=== PATIENT | female | born 1960 | race Caucasian/White ===

== ENCOUNTER 2017-01-15 12:09 | Inpatient (IN) | payer OTHER ==
[~2017-01-15] VITALS: Ht 157.5 cm; Wt 68.2 kg
[2017-01-15] VITALS (15 sets, daily range): BP systolic 130–147; BP diastolic 68–95; PULSE 60–81; RESP 12–23; Ht 157.5 cm; Wt 68.2 kg
[~2017-01-15 12:09] MED LIST: ASPIRIN 81 MG TAB ONE; CAPT25TA3; IBUP200C; LIDOCAINE 2 GM/D5W 500 ML BAG ONE; NITROGLYCERIN (SL) 0.4 MG TAB ONE
[2017-01-15] MEDS ORDERED: ASPIRIN 325 MG TAB PO STA (12:18)
[2017-01-15] MEDS ORDERED: NITROGLYCERIN (SL) 0.4 MG TAB SL PRN (12:30)
[2017-01-15 12:31] LABS: BASOPHIL # 0.1 10^3/ul (0.0-0.1); BASOPHILS % 0.5 % (0.0-2.0); EOSINOPHILS # 0.1 10^3/ul (0.0-0.5); EOSINOPHILS % 0.8 % (0.0-7.0); HEMATOCRIT 46.4 % (37.0-47.0); HEMOGLOBIN 15.3 g/dl (12.0-16.0); LYMPHOCYTES # 2.6 10^3/ul (0.8-2.9); LYMPHOCYTES % 21.5 % (15.0-51.0); MEAN CORPUSCULAR HEMOGLOBIN 30.5 pg (29.0-33.0); MEAN CORPUSCULAR VOLUME 92.6 fl (82.0-101.0); MONOCYTE # 0.5 10^3/ul (0.3-0.9); MONOCYTES % 4.5 % (0.0-11.0); NEUTROPHIL # 8.6 10^3/ul (1.6-7.5); PLATELET COUNT 228 10^3/UL (140-415); RED BLOOD COUNT 5.01 10^6/ul (4.20-5.40); RED CELL DISTRIBUTION WIDTH 14.7 % (11.5-14.5); WHITE BLOOD COUNT 11.9 10^3/ul (4.8-10.8)
[2017-01-15] MEDS ORDERED: HEPARIN 1000 UNITS/ML 10 ML INJ ONE (12:37)
[2017-01-15] MEDS ORDERED: VERAPAMIL 5 MG INJ ONE (12:37)
[2017-01-15] MEDS ORDERED: IOHEXOL 350MG/ML 50 ML BTL ONE (12:37)
[2017-01-15] MEDS ORDERED: MIDAZOLAM 1 MG/ML 2 ML INJ ONE (12:37)
[2017-01-15] MEDS ORDERED: IODIXANOL LOCM 100 ML BTL ONE (12:37)
[2017-01-15] MEDS ORDERED: FENTAnyl 50 MCG/ML VIAL ONE (12:37)
[2017-01-15] MEDS ORDERED: NITROGLYCERIN (IC) 100 MCG/ML INJ ONE (12:38)
--- NOTE | 2017-01-15 12:38 | RADRPT ---
PROCEDURE: XR Chest. CLINICAL INDICATION: Chest pain TECHNIQUE: Single portable view of the chest was obtained COMPARISON: None FINDINGS: The heart is enlarged. The lungs are clear. There is no pleural effusion or pneumothorax. RPTAT: AA IMPRESSION: Mild Cardiomegaly. .Fredrick Cote MD, Date Time Electronically viewed and signed by .Fredrick Cote MD, on 01/15/2017 12:38 .S/
[2017-01-15] MEDS ORDERED: BIVALIRUDIN 250MG /NS 50 ML 50 ML IVPB ONE (12:39)
[2017-01-15] MEDS ORDERED: LIDOCAINE 1% (MDV) 20 ML INJ ONE (12:39)
[2017-01-15 12:57] LABS: CALCIUM 9.6 mg/dl (8.4-10.2); CREATININE 0.75 mg/dl (0.44-1.00); POTASSIUM 4.9 mmol/L (3.5-5.1)
[2017-01-15 13:15] LABS: TROPONIN-I 0.048 ng/ml (0.00-0.12)
[2017-01-15] MEDS ORDERED: AMIODARONE 150 MG INJ ONE ×2 (13:19→13:46)
--- NOTE | 2017-01-15 13:24 | ERA ---
ER Documentation Chief Complaint Date/Time DATE: 01/15/17 TIME: 13:21 Chief Complaint chest pain/pressure, onset yesterday, pt seen by paramedics at home HPI Patient is a 56-year-old female with hypertension who presents with chest pain. The patient has midsternal chest pain which started yesterday. She describes it as a pressure and it has been constant. She had initially called 911 and paramedics saw her and did EKG which was normal and then the patient refused transport to the ER. She has had no treatment as of yet. She does not know the name of her primary doctor. ROS All systems reviewed and are negative except as per history of present illness. Medications Home Meds Reported Medications Captopril* (Captopril*) 25 Mg Tablet 07/31/10 Ibuprofen* (Ibuprofen*) 200 Mg Capsule 07/31/10 Allergies Allergies: Coded Allergies: No Known Allergies (Verified Allergy, Mild, 07/31/10) PMhx/Soc History of Surgery: Yes (Cholecystectomy, ) Anesthesia Reaction: No Hx Neurological Disorder: No Hx Respiratory Disorders: No Hx Cardiac Disorders: Yes (HTN) Hx Psychiatric Problems: No Hx Miscellaneous Medical Probl: No Hx Alcohol Use: No Hx Substance Use: No Hx Tobacco Use: No Smoking Status: Never smoker FmHx Family History: No coronary disease Physical Exam Vitals Vital Signs Date Time Temp Pulse Resp B/P Pulse Ox O2 Delivery O2 Flow Rate FiO2 01/15/17 12:11 97.2 64 18 192/92 100 Physical Exam Const: Moderate distress Head: Atraumatic Eyes: Normal Conjunctiva ENT: Normal External Ears, Nose and Mouth. Neck: Full range of motion..~ No meningismus. Resp: Clear to auscultation bilaterally Cardio: Regular rate and rhythm, no murmurs Abd: Soft, non tender, non distended. Normal bowel sounds Skin: No petechiae or rashes Back: No midline or flank tenderness Ext: No cyanosis, or edema Neur: Awake and alert Psych: Normal Mood and Affect Result Diagram: 01/15/17 1225 01/15/17 1225 Results 24 hrs Laboratory Tests Test 01/15/17 12:25 White Blood Count 11.910^3/ul Red Blood Count 5.0110^6/ul Hemoglobin 15.3g/dl Hematocrit 46.4% Mean Corpuscular Volume 92.6fl Mean Corpuscular Hemoglobin 30.5pg Mean Corpuscular Hemoglobin Concent 33.0g/dl Red Cell Distribution Width 14.7% Platelet Count 49870^3/UL Mean Platelet Volume 10.0fl Neutrophils % 72.0% Lymphocytes % 21.5% Monocytes % 4.5% Eosinophils % 0.8% Basophils % 0.5% Nucleated Red Blood Cells % 0.0/100WBC Neutrophils # 8.610^3/ul Lymphocytes # 2.610^3/ul Monocytes # 0.510^3/ul Eosinophils # 0.110^3/ul Basophils # 0.110^3/ul Nucleated Red Blood Cells # 0.010^3/ul Sodium Level 143mmol/L Potassium Level 4.9mmol/L Chloride Level 103mmol/L Carbon Dioxide Level 24mmol/L Anion Gap 21 Blood Urea Nitrogen 16mg/dl Creatinine 0.75mg/dl Glucose Level 122mg/dl Calcium Level 9.6mg/dl Troponin I 0.048ng/ml Current Medications Medications (Trade) Dose Ordered Sig/Melchor Route PRN Reason Start Time Stop Time Status Last Admin Dose Admin Aspirin (Aspirin) 325 mg ONCE STAT PO 01/15/17 12:18 01/15/17 12:19 DC 01/15/17 12:55 Nitroglycerin (Nitroglycerin (Sl Tab) 0.4 Mg) 1 tab Q5M UP TO 3 DOSES PRN SL CHEST PAIN 01/15/17 12:30 01/15/17 12:43 Procedures/MDM EKG read by me: Rate/Rhythm: Regular rate and rhythm at a normal rate Intervals: Normal Impression: ST elevations in the inferior and lateral leads with reciprocal depressions consistent with STEMI Chest x-ray shows mild cardiomegaly per radiology. Patient is a 56-year-old female who presents with chest pressure. EKG shows acute STEMI. I did review the real estate management specialist EKG that was done at her house which did not show STEMI at that time. The patient was a walk-in. She had an EKG done at 1213. She checked in at 1209. She had a code STEMI called at 1216. Dr. Maloney was at the bedside by 1220. She left the ER at 1231. She was given aspirin and sublingual nitroglycerin per Dr. Maloney. The patient was transferred directly to the cardiac Machine Shop Worker for a catheterization. I spoke with Dr. Proctor from the panel team for admission to an ICU bed. I doubt pneumonia, pneumothorax, pulmonary embolism, or aortic dissection. The patient has high blood pressure and was given sublingual nitroglycerin which will lower the blood pressure. Critical Care: Time: 35 minutes excluding all billable procedures. Treatments/Evaluations: Close monitoring and treatment of unstable vital signs, cardiorespiratory, and neurologic status, while maintaining tight balance of fluid, respiratory, and cardiac interventions. Departure Diagnosis: Primary Impression: STEMI (ST elevation myocardial infarction) Qualified Code: I21.3 - ST elevation myocardial infarction (STEMI), unspecified artery Additional Impressions: Chest pain Qualified Code: I20.0 - Unstable angina pectoris Hypertension Qualified Code: I10 - Essential hypertension Condition: Critical LIBRA PARKER MD Jan 15, 2017 13:24
[2017-01-15] MEDS ORDERED: CLOPIDOGREL 300 MG TAB ONE (13:27)
[2017-01-15] MEDS ORDERED: SOD CHLORIDE 0.9% 1,000 ML IV SCH (13:42)
--- NOTE | 2017-01-15 13:54 | OPR ---
Date/Time of Note Date/Time of Note DATE: 01/15/17 TIME: 13:44 Operative Report Procedure Date: Jan 15, [address] elevation myocardial infarction Postoperative Diagnosis Obstructive coronary artery disease Operation/Procedure Performed Left heart catheterization Right and left coronary angiogram Interpretation and supervision of right left coronary angiogram Left ventricular pressure measurements PCI of distal circumflex with 2.5 x 15 mm Medtronic [place] drug-eluting stent Conscious sedation ACLS protocol Right radial artery approach Surgeon see signature line Gear Technician None Anesthesia Type: other (Conscious sedation) Estimated Blood Loss: minimal Transfusion none Specimen None Grafts/Implants 2.5 x 15 mm Medtronic [place] drug-eluting sten Complications none Pt Condition Post Procedure: guarded Procedure Description Findings Hemodynamics LV pressure 119/6 with EDP of 25 Aortic pressure 115/74 Fluoroscopy Left main medium to large caliber vessel with no significant disease LAD is a medium caliber vessel with a mid 20% stenosis and distal 10% stenosis Circumflex is a medium caliber vessel with a mid 10% stenosis, in the distal vessel there is an obtuse marginal takeoff with an ostial 50% stenosis, mid distal circumflex after the obtuse marginal takeoff there is 100% occlusion RCA is a medium caliber vessel and dominant with a mid 30% stenosis and distal 20% diffuse stenosis Description of procedure Patient was brought to the Watch Supervisor after informed consent. Patient was prepped and draped as per protocol. Right radial access was obtained and a 5/6 Panamanian sheath was placed in the right radial artery. 5 Panamanian JL 3.0 diagnostic catheter was used to engage the left main and angiogram was performed. We next used a 6 [place]ian JR4 guide catheter to engage the RCA and angiogram was performed. On review of images, patient with 100% occlusion and distal circumflex. Angiomax was used for anticoagulation. Initially a VL 3.5 [place]ian guide catheter was used but would not sit well in the left main. We next switched for a 6 [place] VL 3.0 guide catheter and engaged the left main. A run-through wire was used to cross the lesion in the distal circumflex. With cross the lesion, there was significant improvement in flow in the vessel. The lesion was predilated with a 2.0 compliant balloon. After this balloon inflation, patient with ventricular tachycardia. Multiple doses of IV lidocaine were given. IV lidocaine drip was started. Patient returned to sinus rhythm. The lesion was then stented with a 2.5 x 15 mm Medtronic [place] drug-eluting stent. The stent delivery system balloon was used for postdilatation. There was an excellent angiographic result with FRANCA-3 flow with no evidence of dissection. Patient was chest pain-free by the end of the procedure, clinically stable and in sinus rhythm. We next used a 5 [place]ian pigtail into the left ventricle and pressure measures were obtained as well as pullback. Recommendations Dual antiplatelet therapy for minimum of 1 year to maintain stent patency, titrate off IV lidocaine if no further arrhythmias. Roberth Almendarez DO Jan 15, 2017 13:54
[2017-01-15] MEDS ORDERED: AL HYDROX/MG HYDROX/SIMETH 30 ML CUP PO PRN (14:00)
[2017-01-15] MEDS ORDERED: ACETAMINOPHEN 325 MG TAB PO PRN (14:00)
[2017-01-15] MEDS ORDERED: ONDANSETRON 4 MG INJ IV PRN (14:00)
--- NOTE | 2017-01-15 14:03 | CONS ---
Date/Time of Note Date/Time of Note DATE: 01/15/17 TIME: 13:58 Assessment/Plan Assessment/Plan Additional Assessment/Plan ST elevation VA CAD status post PCI to circumflex with drug-eluting stenting Hypertension Ventricular tachycardia -Patient with ST elevation VA with 100% occlusion in the circumflex status post drug-eluting stenting. Continue aspirin and Plavix therapy for minimum of 1 year to maintain stent patency, statin therapy. Patient with ventricular tachycardia during PCI, likely from reperfusion. Responded to IV lidocaine, would titrate down IV lidocaine as long as no further arrhythmias. Check echocardiogram. managed services sales consultant involvement since patient without health insurance and will need assistance with medications. Consultation Date/Type/Reason Admit Date/Time Type of Consultation: cv Reason for Consultation Chest pain and myocardial infarction Hx of Present Illness This is a 56-year-old female with past medical history of hypertension has been having on and off chest pain since yesterday. Chest pain got worse today and EMS was called. Patient was to be brought to the emergency room via ambulance but refused and came on her own. In the waiting room, patient with severe chest pain and ECG demonstrated ST elevation VA and for this reason I was consulted. Chest and was 10 out of 10 in nature upon my initial evaluation. She does complain of shortness of breath, denies abdominal pain, is feeling warm and sweaty. 12 point review of system was performed with all pertinent positives and negatives mentioned above and all else is negative Past Medical History Medical History: hypertension Past Surgical History Past Surgical Hx: cholecystectomy Family History Significant Family History: no pertinent family hx Social History Alcohol Use: none Smoking Status: Never smoker Other Social History Lives at home Exam/Review of Systems Vital Signs Vitals Vital Signs Date Time Temp Pulse Resp B/P Pulse Ox O2 Delivery O2 Flow Rate FiO2 01/15/17 12:11 97.2 64 18 192/92 100 Exam In moderate distress Constitutional: alert, oriented Head: normocephalic Respiratory: other (Coarse breath sounds bilaterally, no wheezing) Cardiovascular: other (S1-S2 heard), regular rate and rhythm Gastrointestinal: bowel sounds, non-tender, soft Extremities: other (No edema) Results Result Diagram: 01/15/17 1225 01/15/17 1225 Results 24 hrs Laboratory Tests Test 01/15/17 12:25 White Blood Count 11.9 H Red Blood Count 5.01 Hemoglobin 15.3 Hematocrit 46.4 Mean Corpuscular Volume 92.6 Mean Corpuscular Hemoglobin 30.5 Mean Corpuscular Hemoglobin Concent 33.0 Red Cell Distribution Width 14.7 H Platelet Count 228 Mean Platelet Volume 10.0 Neutrophils % 72.0 Lymphocytes % 21.5 Monocytes % 4.5 Eosinophils % 0.8 Basophils % 0.5 Nucleated Red Blood Cells % 0.0 Neutrophils # 8.6 H Lymphocytes # 2.6 Monocytes # 0.5 Eosinophils # 0.1 Basophils # 0.1 Nucleated Red Blood Cells # 0.0 Sodium Level 143 Potassium Level 4.9 Chloride Level 103 Carbon Dioxide Level 24 Anion Gap 21 H Blood Urea Nitrogen 16 Creatinine 0.75 Glucose Level 122 Calcium Level 9.6 Troponin I 0.048 Procedures Procedures Sinus rhythm with inferolateral ST elevations Roberth Almendarez DO Jan 15, 2017 14:03
--- NOTE | 2017-01-15 14:52 | HP ---
Date/Time of Note Date/Time of Note DATE: 01/15/17 TIME: 14:38 Assessment/Plan VTE Prophylaxis VTE Prophylaxis Intervention: SCD's Lines/Catheters IV Catheter Type (from Nrsg): Saline Lock Assessment/Plan Assessment/Plan 1. ST elevation [place] s/p PCI with stent placement to distal circumflex - Patient found to have STEMI on EKG performed in ED and taken to slabbing machine operator - Cardiology on board and recommendations appreciated - Will need to be continued on dual antiplatelet therapy for 1 year duration - Started on statin - ECHO ordered - Nitro PRN for pain 2. Ventricular tachycardia during PCI - Likely secondary to reperfusion - Improvement with IV lidocaine and will titrate off 3. HTN - home medication started and will continue to monitor and adjust as needed - Currently stable 4. Thyroid abnormality - Per patient, history of thyroid abnormality but not on any medication - Will check TSH 5. Diet - heart healthy 6. DVT ppx - SCD 7. Code status - Full code 8. Disposition - Admitted to ICU for close monitoring following PCI - access services librarian consulted for assistance with insurance given patient will need to be on dual antiplatelet and is self pay >30 minutes was spent with patient at time of admission. All labs and imaging were personally reviewed HPI/ROS Admit Date/Time Admit Date/Time 01/15/17 Hx of Present Illness 56 yo F with PMH HTN and thyroid issues presented to ED c/o chest pain that started last night around 8pm that was intermittent but worsened this am. She states she had associated chills with diaphoresis. She called EMS and EKG was performed which was normal. Patient refused to come to the ED via EMS and walked in on her own. Patient seen in waiting room with severe chest pain, sternal, 10/10 with associated nausea without vomiting. She was found to have ST elevations on EKG and taken to the slabbing machine operator by Dr. Almendarez. She underwent PCI with stent placement to distal circumflex. Patient was transferred to ICU and states pain has significantly improved and only 1/10. Denies any dizziness , chest pain, palpitations, nausea, vomiting, or abdominal issues. . ROS All 12 systems reviewed and pertinent positives per HPI. All others reviewed and are negative. Constitutional: No diaphoresis, No febrile, No nausea Eyes: no complaints ENT: no complaints Respiratory: No cough, No shortness of breath, No sputum, No wheezing Cardiovascular: chest pain, No edema, No lightheadedness, No palpitations Gastrointestinal: No constipation, No diarrhea, No nausea, No pain, No vomiting Genitourinary: no complaints Musculoskeletal: no complaints Skin: No erythema, No pruritis, No rash Neurologic: no complaints Endocrine: no complaints Lymphatic: no complaints Psychological: no complaints Immunologic: no complaints PMH/Family/Social Past Medical History Medical History: hypertension Past Surgical History Past Surgical Hx: cholecystectomy, other (cesarian section) Family History Significant Family History: no pertinent family hx Social History Alcohol Use: none Smoking Status: Never smoker Drug Use: none Exam/Review of Systems Vital Signs Vitals Vital Signs Date Time Temp Pulse Resp B/P Pulse Ox O2 Delivery O2 Flow Rate FiO2 01/15/17 12:11 97.2 64 18 192/92 100 Exam Constitutional: alert, oriented, well developed, No distress Psych: nl mood/affect, no complaints Head: atraumatic, normocephalic Eyes: EOMI, PERRL, nl sclera ENMT: mucosa pink and moist, nl external ears & nose Neck: non-tender, supple Respiratory: clear to auscultation, No crackles/rales, No wheezing Cardiovascular: regular rate and rhythm, No systolic murmur Gastrointestinal: bowel sounds, non-tender, soft, No distended, No rebound or guarding Genitourinary - Female: No CVA tenderness Musculoskeletal: nl extremities to inspection Extremities: normal pulses, No clubbing, No cyanosis, No edema Neurological: ONCOLOGY CONSULTANT II-XII intact, nl mental status, nl speech, No lethargic Skin: nl turgor Lymph: nl lymph nodes Labs Result Diagram: 01/15/17 1225 01/15/17 1225 Medications Medications Current Medications Aspirin (Halfprin) 81 mg DAILY PO ; Start 01/16/17 at 09:00 Clopidogrel Bisulfate (plaVIX) 75 mg DAILY PO ; Start 01/16/17 at 09:00 Acetaminophen (Tylenol Tab) 650 mg Q4H PRN PO NON-CARDIAC PAIN LEVEL 1-3; Start 01/15/17 at 14:00 Al Hydrox/Mg Hydrox/Simethicone (Mag-Al Plus) 30 ml Q4H PRN PO GASTROINTESTINAL UPSET; Start 01/15/17 at 14:00 Ondansetron HCl (Zofran Inj) 4 mg Q4H PRN IV NAUSEA AND/OR VOMITING; Start at 14:00 Atorvastatin Calcium 80 mg 80 mg DAILY@21 PO ; Start 01/15/17 at 21:00 Sodium Chloride (NS) 1,000 ml @ 75 mls/hr [id number] IV ; Start 01/15/17 at 13:42 ; Stop 01/15/17 at 18:41 Procedures Procedures PCI to circumflex with drug-eluting stenting SAMI CR MD Jan 15, 2017 14:52
[2017-01-15] MEDS ORDERED: morphine 2 MG INJ IV PRN (15:00)
[2017-01-15] MEDS ORDERED: DOCUSATE SODIUM 100 MG CAP PO PRN (15:00)
[2017-01-15] MEDS ORDERED: INFLUENZA VIRUS VACCINE 0.5 ML SYG IM* ONE (17:00)
[2017-01-15 19:22] LABS: CK-MB 61.2 ng/ml (0.0-2.4)
[2017-01-15 19:25] LABS: TROPONIN-I 5.54 ng/ml (0.00-0.12)
[2017-01-15] MEDS: ATORVASTATIN 80 MG TAB PO SCH (20:29)
[2017-01-16] VITALS (21 sets, daily range): BP systolic 121–160; BP diastolic 66–97; PULSE 65–98; RESP 13–24
[2017-01-16 06:10] LABS: BASOPHILS % 0.3 % (0.0-2.0); HEMATOCRIT 41.8 % (37.0-47.0); HEMOGLOBIN 13.7 g/dl (12.0-16.0); LYMPHOCYTES # 2.4 10^3/ul (0.8-2.9); MEAN CORPUSCULAR HEMOGLOBIN 29.9 pg (29.0-33.0); MEAN CORPUSCULAR HGB CONC 32.8 g/dl (32.0-37.0); MEAN CORPUSCULAR VOLUME 91.3 fl (82.0-101.0); MEAN PLATELET VOLUME 10.6 fl (7.4-10.4); MONOCYTE # 0.4 10^3/ul (0.3-0.9); MONOCYTES % 3.9 % (0.0-11.0); NEUTROPHIL # 8.4 10^3/ul (1.6-7.5); NEUTROPHILS % 74.4 % (39.0-77.0); PLATELET COUNT 231 10^3/UL (140-415); RED BLOOD COUNT 4.58 10^6/ul (4.20-5.40); RED CELL DISTRIBUTION WIDTH 14.8 % (11.5-14.5); WHITE BLOOD COUNT 11.3 10^3/ul (4.8-10.8)
[2017-01-16 06:48] LABS: CALCIUM 9.4 mg/dl (8.4-10.2); CHOL/HDL RATIO 4.4 RATIO; CREATININE 0.66 mg/dl (0.44-1.00); POTASSIUM 4.3 mmol/L (3.5-5.1)
[2017-01-16] MEDS ORDERED: LIDOCAINE 100 MG SYRINGE ONE (07:00)
[2017-01-16] MEDS ORDERED: AMIODARONE 150 MG INJ ONE (07:00)
[2017-01-16] MEDS: CLOPIDOGREL 75 MG TAB PO SCH (08:21)
[2017-01-16] MEDS: ASPIRIN (EC) 81 MG TAB PO SCH (08:21)
--- NOTE | 2017-01-16 09:11 | PN ---
Date/Time of Note Date/Time of Note DATE: 01/16/17 TIME: 09:08 Assessment/Plan VTE Prophylaxis VTE Prophylaxis Intervention: SCD's Lines/Catheters IV Catheter Type (from Nrsg): Peripheral IV Urinary Cath still in place: No Assessment/Plan Assessment/Plan 1. ST elevation [place] s/p PCI with stent placement to distal circumflex, had a ventricular tachycardia on EKG - Patient found to have STEMI on EKG performed in ED and taken to medical laboratory technician - Cardiology on board and recommendations appreciated - Will need to be continued on dual antiplatelet therapy for 1 year duration - Started on statin - Nitro PRN for pain 2. Ventricular tachycardia during PCI - Likely secondary to reperfusion - Improvement with IV lidocaine and will titrate off 3. HTN - home medication started and will continue to monitor and adjust as needed - Currently stable 4. Thyroid abnormality - Per patient, history of thyroid abnormality but not on any medication - Will check TSH 5. Diet - heart healthy 6. DVT ppx - SCD 7. Code status - Full code Subjective 24 Hr Interval Summary Free Text/Dictation remained stable in ICU, no chest pain, no palpitation Exam/Review of Systems Vital Signs Vitals Vital Signs Date Time Temp Pulse Resp B/P Pulse Ox O2 Delivery O2 Flow Rate FiO2 01/16/17 08:00 78 01/16/17 07:30 98.7 13 140/87 100 Room Air 01/16/17 04:00 2.0 Intake and Output 01/15/17 01/15/17 01/16/17 15:00 23:00 07:00 Intake Total 32 ml 801 ml 600 ml Output Total 500 ml 800 ml Balance 32 ml 301 ml -200 ml Exam Constitutional: alert Psych: no complaints Head: normocephalic Eyes: nl conjunctiva ENMT: nl external ears & nose Neck: non-tender, supple Respiratory: clear to auscultation, normal air movement Cardiovascular: nl pulses, regular rate and rhythm Gastrointestinal: non-tender, soft Musculoskeletal: nl extremities to inspection Neurological: TECHNICAL COMMUNICATION TEACHER II-XII intact, nl mental status, nl speech, nl strength Results Result Diagram: 01/16/1752101/16/17521 Results 24 hrs Laboratory Tests Test 01/15/17 12:20 01/15/17 12:25 01/15/17 18:33 01/16/17 05:22 Thyroid Stimulating Hormone (TSH) 107.000 H White Blood Count 11.9 H 11.3 H Red Blood Count 5.01 4.58 Hemoglobin 15.3 13.7 Hematocrit 46.4 41.8 Mean Corpuscular Volume 92.6 91.3 Mean Corpuscular Hemoglobin 30.5 29.9 Mean Corpuscular Hemoglobin Concent 33.0 32.8 Red Cell Distribution Width 14.7 H 14.8 H Platelet Count 228 231 Mean Platelet Volume 10.0 10.6 H Neutrophils % 72.0 74.4 Lymphocytes % 21.5 21.0 Monocytes % 4.5 3.9 Eosinophils % 0.8 0.0 Basophils % 0.5 0.3 Nucleated Red Blood Cells % 0.0 0.0 Neutrophils # 8.6 H 8.4 H Lymphocytes # 2.6 2.4 Monocytes # 0.5 0.4 Eosinophils # 0.1 0.0 Basophils # 0.1 0.0 Nucleated Red Blood Cells # 0.0 0.0 Sodium Level 143 142 Potassium Level 4.9 4.3 Chloride Level 103 107 Carbon Dioxide Level 24 20 L Anion Gap 21 H 19 H Blood Urea Nitrogen 16 11 Creatinine 0.75 0.66 Glucose Level 122 101 Calcium Level 9.6 9.4 Troponin I 0.048 5.540 *H Creatine Kinase 842 H Creatine Kinase Index 7.3 Creatinine Kinase MB (Mass) 61.20 H Triglycerides Level 140 Cholesterol Level 240 H LDL Cholesterol, Calculated 158 HDL Cholesterol 54 Cholesterol/HDL Ratio 4.4 Medications Medications Current Medications Aspirin (Halfprin) 81 mg DAILY PO Last administered on 01/16/17 08:21; Admin Dose 81 MG; Start 01/16/17 at 09:00 Clopidogrel Bisulfate (plaVIX) 75 mg DAILY PO Last administered on 01/16/17 08:21; Admin Dose 75 MG; Start 01/16/17 at 09:00 Acetaminophen (Tylenol Tab) 650 mg Q4H PRN PO NON-CARDIAC PAIN LEVEL 1-3; Start 01/15/17 at 14:00 Al Hydrox/Mg Hydrox/Simethicone (Mag-Al Plus) 30 ml Q4H PRN PO GASTROINTESTINAL UPSET; Start 01/15/17 at 14:00 Ondansetron HCl (Zofran Inj) 4 mg Q4H PRN IV NAUSEA AND/OR VOMITING; Start at 14:00 Atorvastatin Calcium (Lipitor) 80 mg DAILY@21 PO Last administered on 20:29; Admin Dose 80 MG; Start 01/15/17 at 21:00 Morphine Sulfate (morphine) 2 mg Q4H PRN IV PAIN LEVEL 7-10 Last administered on 01/15/17 18:13; Admin Dose 2 MG; Start 01/15/17 at 15:00 Docusate Sodium (Colace) 100 mg Q12H PRN PO CONSTIPATION; Start 01/15/17 at 15 :00 Influenza Virus Vaccine (Fluzone) 0.5 ml ONCE ONCE IM* ; Start 01/15/17 at 17: 00; Stop 01/15/17 at 17:01; Status UNDAPHNE MARISCAL MD Jan 16, 2017 09:11
[2017-01-16] MEDS: METOPROLOL 25 MG TAB PO SCH ×2 (14:02→20:48)
[2017-01-16 14:03] LABS: TROPONIN-I 17.3 ng/ml (0.00-0.12)
--- NOTE | 2017-01-16 14:54 | RADRPT ---
Echocardiogram Report Patient Name: PENELOPE BOWMAN Gender: Female Date: 1960 Study Date: 15-Jan-2017 Certified Ethical Hacker: Michele [facility] Location: 101-A Ref. Physician: ROBERTH ALMENDAREZ Quality: Adequate Procedures: Transthoracic echocardiogram with complete 2D, M-Mode, and doppler examination. Indications: Myocardial Infarction. 2D/M Mode Doppler Measurement Value Normal Ranges Measurement Value Normal Ranges LVIDd 2D 4.1 3.5 - 5.6 cm AV Peak Fuad 1.6 m/sec LVIDs 2D 2.7 2.1 - 4.1 cm AV Peak PG 10.8 mmHg LVPWd 2D 1.3 0.6 - 1.1 cm LVOT Peak Fuad 1.0 m/sec IVSd 2D 1.4 0.6 - 1.1 cm LVOT Peak PG 3.7 mmHg AoR Diam 2D 2.7 2.0 - 3.7 cm MV E Peak Fuad 1.3 m/sec EDV 2D 74.3 cm3 MV A Peak Fu[place] 0.8 m/sec ESV 2D 19.3 cm3 MV E/A 1.6 LA Dimen 2D 3.7 2.3 - 4.0 cm MV Decel Time 122 msec MV Decel [place] 10 MV E/A 1.6 TR Peak Fuad 2.7 m/sec TR Peak PG 29.0 mmHg RVSP 32.0 mmHg Findings Left Ventricle: Normal left ventricular systolic function. Normal left ventricular cavity size. Moderate concentric left ventricular hypertrophy. Ejection fraction is visually estimated at 65 %. Abnormal Diastolic Function. Right Ventricle: Normal right ventricular size. Normal right ventricular systolic function. Left Atrium: The left atrium is normal in size. Right Atrium: The right atrium is normal in size. Mitral Valve: Mild mitral leaflet calcification. Mild mitral annular calcification. Mild mitral valve regurgitation. Aortic Valve: Normal appearance of the aortic valve. No significant aortic stenosis or insufficiency. Tricuspid Valve: Normal appearance of the tricuspid valve. Estimated peak PA systolic pressure 32 mmHg. There is mild tricuspid regurgitation. Pulmonic Valve: Pulmonic valve not well visualized. There is trace pulmonic regurgitation. Pericardium: Normal pericardium with no significant pericardial effusion. Aorta: Normal aortic root. IVC: Normal size and normal respiratory collapse consistent with normal right atrial pressure. Conclusions 1.Normal left ventricular systolic function. Normal left ventricular cavity size. Moderate concentric left ventricular hypertrophy. Ejection fraction is visually estimated at 65 %. Abnormal Diastolic Function. 2.Normal right ventricular size. Normal right ventricular systolic function. 3.The left atrium is normal in size. 4.The right atrium is normal in size. 5.Mild mitral valve regurgitation. 6.No significant aortic stenosis or insufficiency. 7.Estimated peak PA systolic pressure 32 mmHg. There is mild tricuspid regurgitation. 8.Normal pericardium with no significant pericardial effusion. Electronically Signed By: Roberth Almendarez 16-Jan-2017 14:54:27 -0700 Patient Name: PENELOPE BOWMAN Study Date: 15-Jan-2017 [id number]
--- NOTE | 2017-01-16 15:10 | CONS ---
Date/Time of Note Date/Time of Note DATE: 01/16/17 TIME: 15:08 Assessment/Plan Assessment/Plan Additional Assessment/Plan ST elevation CA CAD status post PCI to circumflex with drug-eluting stenting Preserved EF Hypertension Ventricular tachycardia -no further VT seen. continue DAPT, statin tx, start BB and NETTIE-I. Consultation Date/Type/Reason Admit Date/Time Jan 15, 2017 at 12:32 Initial Consult Date Type of Consultation: cv 24 HR Interval Summary Free Text/Dictation denies cp, sob, feeling better Exam/Review of Systems Vital Signs Vitals Vital Signs Date Time Temp Pulse Resp B/P Pulse Ox O2 Delivery O2 Flow Rate FiO2 01/16/17 13:52 89 01/16/17 13:51 98.0 20 121/73 99 Room Air 01/16/17 04:00 2.0 Intake and Output 01/15/17 01/15/17 01/16/17 15:00 23:00 07:00 Intake Total 32 ml 801 ml 600 ml Output Total 500 ml 800 ml Balance 32 ml 301 ml -200 ml Exam nad, son at bedside Constitutional: alert, oriented Head: normocephalic Respiratory: clear to auscultation, normal air movement Cardiovascular: other (s1s2), regular rate and rhythm Gastrointestinal: bowel sounds, non-tender, soft Extremities: other (no edema, +2 radialright pulse) Results Result Diagram: 01/16/1722 01/16/17 0522 Results 24 hrs Laboratory Tests Test 01/15/17 18:33 01/16/17 05:18 01/16/17 05:22 Creatine Kinase 842 H 1505 #H Creatine Kinase Index 7.3 6.4 Creatinine Kinase MB (Mass) 61.20 H 96.00 H Troponin I 5.540 *H 17.300 *H White Blood Count 11.3 H Red Blood Count 4.58 Hemoglobin 13.7 Hematocrit 41.8 Mean Corpuscular Volume 91.3 Mean Corpuscular Hemoglobin 29.9 Mean Corpuscular Hemoglobin Concent 32.8 Red Cell Distribution Width 14.8 H Platelet Count 231 Mean Platelet Volume 10.6 H Neutrophils % 74.4 Lymphocytes % 21.0 Monocytes % 3.9 Eosinophils % 0.0 Basophils % 0.3 Nucleated Red Blood Cells % 0.0 Neutrophils # 8.4 H Lymphocytes # 2.4 Monocytes # 0.4 Eosinophils # 0.0 Basophils # 0.0 Nucleated Red Blood Cells # 0.0 Sodium Level 142 Potassium Level 4.3 Chloride Level 107 Carbon Dioxide Level 20 L Anion Gap 19 H Blood Urea Nitrogen 11 Creatinine 0.66 Glucose Level 101 Calcium Level 9.4 Triglycerides Level 140 Cholesterol Level 240 H LDL Cholesterol, Calculated 158 HDL Cholesterol 54 Cholesterol/HDL Ratio 4.4 Medications Medications Current Medications Aspirin (Halfprin) 81 mg DAILY PO Last administered on 01/16/17 08:21; Admin Dose 81 MG; Start 01/16/17 at 09:00 Clopidogrel Bisulfate (plaVIX) 75 mg DAILY PO Last administered on 01/16/17 08:21; Admin Dose 75 MG; Start 01/16/17 at 09:00 Acetaminophen (Tylenol Tab) 650 mg Q4H PRN PO NON-CARDIAC PAIN LEVEL 1-3; Start 01/15/17 at 14:00 Al Hydrox/Mg Hydrox/Simethicone (Mag-Al Plus) 30 ml Q4H PRN PO GASTROINTESTINAL UPSET; Start 01/15/17 at 14:00 Ondansetron HCl (Zofran Inj) 4 mg Q4H PRN IV NAUSEA AND/OR VOMITING; Start at 14:00 Atorvastatin Calcium (Lipitor) 80 mg DAILY@21 PO Last administered on 20:29; Admin Dose 80 MG; Start 01/15/17 at 21:00 Morphine Sulfate (morphine) 2 mg Q4H PRN IV PAIN LEVEL 7-10 Last administered on 01/15/17 18:13; Admin Dose 2 MG; Start 01/15/17 at 15:00 Docusate Sodium (Colace) 100 mg Q12H PRN PO CONSTIPATION; Start 01/15/17 at 15 :00 Influenza Virus Vaccine (Fluzone) 0.5 ml ONCE ONCE IM* ; Start 01/17/17 at 11: 00; Stop 01/17/17 at 11:01 Metoprolol Tartrate (Lopressor) 25 mg BID PO Last administered on 01/16/17 14 :02; Admin Dose 25 MG; Start 01/16/17 at 13:00 Lisinopril (Zestril) 5 mg DAILY PO ; Start 01/17/17 at 09:00 Roberth Almendarez DO Jan 16, 2017 15:10
[2017-01-16 16:10] LABS: CK-MB 51.5 ng/ml (0.0-2.4)
[2017-01-16 16:12] LABS: TROPONIN-I 11.1 ng/ml (0.00-0.12)
[2017-01-16] MEDS: ATORVASTATIN 80 MG TAB PO SCH (20:47)
[2017-01-16] MEDS ORDERED: ZOLPIDEM 5 MG TAB PO PRN (21:30)
[2017-01-17] VITALS (8 sets, daily range): BP systolic 100–129; BP diastolic 56–80; PULSE 60–81; RESP 18–20
[2017-01-17 08:02] LABS: BASOPHILS % 0.4 % (0.0-2.0); EOSINOPHILS # 0.1 10^3/ul (0.0-0.5); EOSINOPHILS % 1.3 % (0.0-7.0); HEMATOCRIT 41.8 % (37.0-47.0); HEMOGLOBIN 13.8 g/dl (12.0-16.0); LYMPHOCYTES # 2.7 10^3/ul (0.8-2.9); LYMPHOCYTES % 33.2 % (15.0-51.0); MEAN CORPUSCULAR HEMOGLOBIN 30.5 pg (29.0-33.0); MEAN CORPUSCULAR VOLUME 92.3 fl (82.0-101.0); MEAN PLATELET VOLUME 10.6 fl (7.4-10.4); MONOCYTE # 0.5 10^3/ul (0.3-0.9); MONOCYTES % 5.6 % (0.0-11.0); NEUTROPHIL # 4.8 10^3/ul (1.6-7.5); PLATELET COUNT 211 10^3/UL (140-415); RED BLOOD COUNT 4.53 10^6/ul (4.20-5.40); RED CELL DISTRIBUTION WIDTH 14.9 % (11.5-14.5); WHITE BLOOD COUNT 8.2 10^3/ul (4.8-10.8)
[2017-01-17 08:33] LABS: CALCIUM 9.2 mg/dl (8.4-10.2); CREATININE 0.76 mg/dl (0.44-1.00)
[2017-01-17] MEDS: ASPIRIN (EC) 81 MG TAB PO SCH (08:38)
[2017-01-17] MEDS: CLOPIDOGREL 75 MG TAB PO SCH (08:38)
[2017-01-17] MEDS: METOPROLOL 25 MG TAB PO SCH (08:38)
[2017-01-17] MEDS ORDERED: LISINOPRIL 5 MG TAB PO SCH (09:00)
--- NOTE | 2017-01-17 10:24 | PN ---
Date/Time of Note Date/Time of Note DATE: 01/17/17 TIME: 10:23 Assessment/Plan VTE Prophylaxis VTE Prophylaxis Intervention: SCD's Lines/Catheters IV Catheter Type (from Nrsg): Saline Lock Urinary Cath still in place: No Assessment/Plan Assessment/Plan 1. ST elevation VA s/p PCI with stent placement to distal circumflex, had a ventricular tachycardia on EKG - Patient found to have STEMI on EKG performed in ED and taken to vp lab - Cardiology on board and recommendations appreciated - Will need to be continued on dual antiplatelet therapy for 1 year duration - Started on statin - Nitro PRN for pain 2. Ventricular tachycardia during PCI - Likely secondary to reperfusion - Improvement with IV lidocaine and will titrate off 3. HTN - home medication started and will continue to monitor and adjust as needed - Currently stable 4. Thyroid abnormality - Per patient, history of thyroid abnormality but not on any medication - Will check TSH 5. Diet - heart healthy 6. DVT ppx - SCD 7. Code status - Full code Subjective 24 Hr Interval Summary Free Text/Dictation no chest pain Exam/Review of Systems Vital Signs Vitals Vital Signs Date Time Temp Pulse Resp B/P Pulse Ox O2 Delivery O2 Flow Rate FiO2 01/17/17 08:03 97.4 77 18 129/80 95 01/16/17 13:51 Room Air 01/16/17 04:00 2.0 Intake and Output 01/16/17 01/16/17 01/17/17 15:00 23:00 07:00 Intake Total 475 ml 400 ml 550 ml Balance 475 ml 400 ml 550 ml Exam Constitutional: alert Psych: no complaints Head: normocephalic Eyes: nl conjunctiva ENMT: nl external ears & nose Neck: non-tender, supple Respiratory: clear to auscultation, normal air movement Cardiovascular: nl pulses, regular rate and rhythm Gastrointestinal: non-tender, soft Musculoskeletal: nl extremities to inspection Neurological: [employer] II-XII intact, nl mental status, nl speech, nl strength Results Result Diagram: 01/17/1718 01/17/1718 Results 24 hrs Laboratory Tests Test 01/16/17 15:22 01/17/17 07:18 Creatine Kinase 967 H Creatine Kinase Index 5.3 Creatinine Kinase MB (Mass) 51.50 H Troponin I 11.100 *H White Blood Count 8.2 # Red Blood Count 4.53 Hemoglobin 13.8 Hematocrit 41.8 Mean Corpuscular Volume 92.3 Mean Corpuscular Hemoglobin 30.5 Mean Corpuscular Hemoglobin Concent 33.0 Red Cell Distribution Width 14.9 H Platelet Count 211 Mean Platelet Volume 10.6 H Neutrophils % 59.0 Lymphocytes % 33.2 Monocytes % 5.6 Eosinophils % 1.3 Basophils % 0.4 Nucleated Red Blood Cells % 0.0 Neutrophils # 4.8 Lymphocytes # 2.7 Monocytes # 0.5 Eosinophils # 0.1 Basophils # 0.0 Nucleated Red Blood Cells # 0.0 Sodium Level 142 Potassium Level 4.0 Chloride Level 106 Carbon Dioxide Level 23 Anion Gap 17 H Blood Urea Nitrogen 17 Creatinine 0.76 Glucose Level 99 Calcium Level 9.2 Magnesium Level 1.9 Medications Medications Current Medications Aspirin (Halfprin) 81 mg DAILY PO Last administered on 01/17/17 08:38; Admin Dose 81 MG; Start 01/16/17 at 09:00 Clopidogrel Bisulfate (plaVIX) 75 mg DAILY PO Last administered on 01/17/17 08:38; Admin Dose 75 MG; Start 01/16/17 at 09:00 Acetaminophen (Tylenol Tab) 650 mg Q4H PRN PO NON-CARDIAC PAIN LEVEL 1-3; Start 01/15/17 at 14:00 Al Hydrox/Mg Hydrox/Simethicone (Mag-Al Plus) 30 ml Q4H PRN PO GASTROINTESTINAL UPSET; Start 01/15/17 at 14:00 Ondansetron HCl (Zofran Inj) 4 mg Q4H PRN IV NAUSEA AND/OR VOMITING; Start at 14:00 Atorvastatin Calcium (Lipitor) 80 mg DAILY@21 PO Last administered on 20:47; Admin Dose 80 MG; Start 01/15/17 at 21:00 Morphine Sulfate (morphine) 2 mg Q4H PRN IV PAIN LEVEL 7-10 Last administered on 01/15/17 18:13; Admin Dose 2 MG; Start 01/15/17 at 15:00 Docusate Sodium (Colace) 100 mg Q12H PRN PO CONSTIPATION; Start 01/15/17 at 15 :00 Influenza Virus Vaccine (Fluzone) 0.5 ml ONCE ONCE IM* ; Start 01/17/17 at 11: 00; Stop 01/17/17 at 11:01 Metoprolol Tartrate (Lopressor) 25 mg BID PO Last administered on 01/17/17 08 :38; Admin Dose 25 MG; Start 01/16/17 at 13:00 Lisinopril (Zestril) 5 mg DAILY PO Last administered on 01/17/17 08:39; Admin Dose 5 MG; Start 01/17/17 at 09:00 DAPHNE CHRISTIANSEN MD Jan 17, 2017 10:24
--- NOTE | 2017-01-17 10:26 | PDOCDIS ---
Discharge Instructions CONDITION Patient Condition: Good HOME CARE INSTRUCTIONS: Special Diet: Cardiac diet ACTIVITY: Activity Restrictions: Slowly Increase Activity Rest between Activity Avoid heavy lifting Avoid Heavy Housework FOLLOW UP/APPOINTMENTS Follow-up Plan follow up with her own PMD in 1-2 week afte rdischarge, if no PMD then follow up with [facility]. Follow up with cardiology as outpatient in 1-2 week after discharge- if no Insurance then she is advised to talk to social media content specialist and go to [facility] as soon as possible, Nurse is instructed to give Address of that hospital. DAPHNE CHRISTIANSEN MD Jan 17, 2017 10:26
[2017-01-17] MEDS ORDERED: ASPI-664 PO (10:29)
[2017-01-17] MEDS ORDERED: CLOP75TA28 PO (10:29)
[2017-01-17] MEDS ORDERED: METO-448 PO (10:29)
[2017-01-17] MEDS ORDERED: ATOR80TA75 PO (10:29)
[2017-01-17] MEDS ORDERED: LISI-313 PO (10:29)
[2017-01-17] MEDS ORDERED: INFLUENZA VIRUS VACCINE 0.5 ML SYG IM* ONE (11:00)
--- NOTE | 2017-01-17 13:09 | CONS ---
Date/Time of Note Date/Time of Note DATE: 01/17/17 TIME: 13:04 Assessment/Plan Assessment/Plan Additional Assessment/Plan ST elevation ID CAD status post PCI to circumflex with drug-eluting stenting Preserved EF Hypertension -Patient doing well, no significant arrhythmias seen on telemetry. Continue aspirin and Plavix for minimum of 1 year to maintain stent patency. Prescription left for Plavix for 1 year. Continue statin and beta-darvin if no contraindication Consultation Date/Type/Reason Admit Date/Time Jan 15, 2017 at 12:32 Type of Consultation: cv 24 HR Interval Summary Free Text/Dictation Patient denies chest pain, shortness of breath, continues to feel better Exam/Review of Systems Vital Signs Vitals Vital Signs Date Time Temp Pulse Resp B/P Pulse Ox O2 Delivery O2 Flow Rate FiO2 01/17/17 12:39 97.4 61 18 102/56 97 01/16/17 13:51 Room Air 01/16/17 04:00 2.0 Intake and Output 01/16/17 01/16/17 01/17/17 15:00 23:00 07:00 Intake Total 475 ml 400 ml 550 ml Balance 475 ml 400 ml 550 ml Exam No apparent distress Constitutional: alert, oriented Head: normocephalic Respiratory: clear to auscultation, normal air movement Cardiovascular: other (S1-S2 heard), regular rate and rhythm Gastrointestinal: bowel sounds, non-tender, soft Extremities: other (No edema, right wrist +2 radial pulse, no hematoma) Results Result Diagram: 01/17/17 0718 01/17/17 0718 Results 24 hrs Laboratory Tests Test 01/16/17 15:22 01/17/17 07:18 Creatine Kinase 967 H Creatine Kinase Index 5.3 Creatinine Kinase MB (Mass) 51.50 H Troponin I 11.100 *H White Blood Count 8.2 # Red Blood Count 4.53 Hemoglobin 13.8 Hematocrit 41.8 Mean Corpuscular Volume 92.3 Mean Corpuscular Hemoglobin 30.5 Mean Corpuscular Hemoglobin Concent 33.0 Red Cell Distribution Width 14.9 H Platelet Count 211 Mean Platelet Volume 10.6 H Neutrophils % 59.0 Lymphocytes % 33.2 Monocytes % 5.6 Eosinophils % 1.3 Basophils % 0.4 Nucleated Red Blood Cells % 0.0 Neutrophils # 4.8 Lymphocytes # 2.7 Monocytes # 0.5 Eosinophils # 0.1 Basophils # 0.0 Nucleated Red Blood Cells # 0.0 Sodium Level 142 Potassium Level 4.0 Chloride Level 106 Carbon Dioxide Level 23 Anion Gap 17 H Blood Urea Nitrogen 17 Creatinine 0.76 Glucose Level 99 Calcium Level 9.2 Magnesium Level 1.9 Medications Medications Current Medications Aspirin (Halfprin) 81 mg DAILY PO Last administered on 01/17/17 08:38; Admin Dose 81 MG; Start 01/16/17 at 09:00 Clopidogrel Bisulfate (plaVIX) 75 mg DAILY PO Last administered on 01/17/17 08:38; Admin Dose 75 MG; Start 01/16/17 at 09:00 Acetaminophen (Tylenol Tab) 650 mg Q4H PRN PO NON-CARDIAC PAIN LEVEL 1-3; Start 01/15/17 at 14:00 Al Hydrox/Mg Hydrox/Simethicone (Mag-Al Plus) 30 ml Q4H PRN PO GASTROINTESTINAL UPSET; Start 01/15/17 at 14:00 Ondansetron HCl (Zofran Inj) 4 mg Q4H PRN IV NAUSEA AND/OR VOMITING; Start at 14:00 Atorvastatin Calcium (Lipitor) 80 mg DAILY@21 PO Last administered on 20:47; Admin Dose 80 MG; Start 01/15/17 at 21:00 Morphine Sulfate (morphine) 2 mg Q4H PRN IV PAIN LEVEL 7-10 Last administered on 01/15/17 18:13; Admin Dose 2 MG; Start 01/15/17 at 15:00 Docusate Sodium (Colace) 100 mg Q12H PRN PO CONSTIPATION; Start 01/15/17 at 15 :00 Metoprolol Tartrate (Lopressor) 25 mg BID PO Last administered on 01/17/17 08 :38; Admin Dose 25 MG; Start 01/16/17 at 13:00 Lisinopril (Zestril) 5 mg DAILY PO Last administered on 01/17/17 08:39; Admin Dose 5 MG; Start 01/17/17 at 09:00 Roberth Almendarez DO Jan 17, 2017 13:09
--- NOTE | 2017-01-17 17:46 | DS ---
Date/Time of Note Date/Time of Note DATE: 01/17/17 TIME: 17:46 Discharge Summary Admission/Discharge Info Admit Date/Time Jan 15, 2017 at 12:32 Discharge Date/Time Hx of Present Illness 56 yo F with PMH HTN and thyroid issues presented to ED c/o chest pain that started last night around 8pm that was intermittent but worsened this am. She states she had associated chills with diaphoresis. She called EMS and EKG was performed which was normal. Patient refused to come to the ED via EMS and walked in on her own. Patient seen in waiting room with severe chest pain, sternal, 01/08 with associated nausea without vomiting. She was found to have ST elevations on EKG and taken to [facility] by Dr. Almendarez. She underwent PCI with stent placement to distal circumflex. Patient was transferred to ICU and states pain has significantly improved and only 1/10. Denies any dizziness , chest pain, palpitations, nausea, vomiting, or abdominal issues. . Home Meds Active Scripts Aspirin* (Aspirin* EC) 81 Mg Tablet., 81 MG PO DAILY, #30 TAB Prov:DAPHNE CHRISTIANSEN MD 01/17/17 Metoprolol Tartrate* (Lopressor*) 25 Mg Tab, 25 MG PO BID, #60 TAB Prov:DAPHNE CHRISTIANSEN MD 01/17/17 Lisinopril* (Lisinopril*) 5 Mg Tablet, 5 MG PO DAILY, #30 TAB Prov:DAPHNE CHRISTIANSEN MD 01/17/17 Atorvastatin* (Atorvastatin*) 80 Mg Tablet, 80 MG PO DAILY@21, #30 TAB Prov:DAPHNE CHRISTIANSEN MD 01/17/17 Clopidogrel Bisulfate (Clopidogrel) 75 Mg Tablet, 75 MG PO DAILY, #30 TAB Prov:DAPHNE CHRISTIANSEN MD 01/17/17 Discontinued Reported Medications Captopril* (Captopril*) 25 Mg Tablet 07/31/10 Ibuprofen* (Ibuprofen*) 200 Mg Capsule 07/31/10 Follow-up Plan follow up with her own PMD in 1-2 week afte rdischarge, if no PMD then follow up with [facility]. Follow up with cardiology as outpatient in 1-2 week after discharge- if no Insurance then she is advised to talk to social services designee and go to [facility] as soon as possible, Nurse is instructed to give Address of that hospital. Primary Care Provider Not On Staff Doctor Pending Labs Laboratory Tests Test 01/17/17 07:18 White Blood Count 8.210^3/ul (4.8-10.8) Red Blood Count 4.5310^6/ul (4.20-5.40) Hemoglobin 13.8g/dl (12.0-16.0) Hematocrit 41.8% (37.0-47.0) Mean Corpuscular Volume 92.3fl (82.0-101.0) Mean Corpuscular Hemoglobin 30.5pg (29.0-33.0) Mean Corpuscular Hemoglobin Concent 33.0g/dl (32.0-37.0) Red Cell Distribution Width 14.9% (11.5-14.5) Platelet Count 43921^3/UL (140-415) Mean Platelet Volume 10.6fl (7.4-10.4) Neutrophils % 59.0% (39.0-77.0) Lymphocytes % 33.2% (15.0-51.0) Monocytes % 5.6% (0.0-11.0) Eosinophils % 1.3% (0.0-7.0) Basophils % 0.4% (0.0-2.0) Nucleated Red Blood Cells % 0.0/100WBC (0.0-0.0) Neutrophils # 4.810^3/ul (1.6-7.5) Lymphocytes # 2.710^3/ul (0.8-2.9) Monocytes # 0.510^3/ul (0.3-0.9) Eosinophils # 0.110^3/ul (0.0-0.5) Basophils # 0.010^3/ul (0.0-0.1) Nucleated Red Blood Cells # 0.010^3/ul (0.0-0.0) Sodium Level 142mmol/L (135-144) Potassium Level 4.0mmol/L (3.5-5.1) Chloride Level 106mmol/L (97-110) Carbon Dioxide Level 23mmol/L (21-31) Anion Gap 17 (8-16) Blood Urea Nitrogen 17mg/dl (7-20) Creatinine 0.76mg/dl (0.44-1.00) Glucose Level 99mg/dl (70-220) Calcium Level 9.2mg/dl (8.4-10.2) Magnesium Level 1.9mg/dl (1.7-2.5) DAPHNE CHRISTIANSEN MD Jan 17, 2017 17:46
--- NOTE | 2017-01-17 18:29 | RADRPT ---
Vent Rate: 73 bpm RR Interval: 0 msec TX Interval: 136 msec QRS Duration: 70 msec QT Interval: 446 msec QTC Interval: 491 msec P-R-T [place]: 50 - 1 - -10 degrees Normal sinus rhythm ST amp; T wave abnormality, consider inferolateral ischemia Prolonged QT Abnormal ECG Electronically Signed By: Jose Martin Mendoza [id number]
--- NOTE | 2017-01-17 18:29 | RADRPT ---
Vent Rate: 62 bpm RR Interval: [address] Interval: 142 msec QRS Duration: 70 msec QT Interval: 452 msec QTC Interval: 458 msec P-R-T [place]: 60 - 28 - 72 degrees Age and gender specific ECG analysis Normal sinus rhythm Septal infarct , age undetermined Inferior injury pattern Consider right ventricular involvement in acute inferior infarct Abnormal ECG Electronically Signed By: Jose Martin Mendoza [id number]
== END 2017-01-17 18:09 | disposition home or self-care (01) | DRG 247 ==
LOC: E/R 12:09 → SDS 12:31 → CCL 12:31 → ICU 12:32 → SDS 14:10 → ICU 14:10 → UNDOFXSDCSVC 14:10 → UNDOFXSDCACCOM 14:10 → MS4 01-16 13:50
PROVIDERS: ADMIT Internal Medicine; ATTEND Internal Medicine
PROC: 4A023N7 Measurement of Cardiac Sampling and Pressure, Left Heart, Percutaneous Approach (ICD-10-PCS; 2017-01-15)
PROC: B211YZZ Fluoroscopy of Multiple Coronary Arteries using Other Contrast (ICD-10-PCS; 2017-01-15)
PROC: B215YZZ Fluoroscopy of Left Heart using Other Contrast (ICD-10-PCS; 2017-01-15)
PROC: 027034Z Dilation of Coronary Artery, One Artery with Drug-eluting Intraluminal Device, Percutaneous Approach (ICD-10-PCS; principal; 2017-01-15 12:30)
DX: I21.19 ST elevation (STEMI) myocardial infarction involving other coronary artery of inferior wall (principal); I47.2 Ventricular tachycardia; I25.110 Atherosclerotic heart disease of native coronary artery with unstable angina pectoris; I10 Essential (primary) hypertension; Z79.02 Long term (current) use of antithrombotics/antiplatelets; Z79.82 Long term (current) use of aspirin; Z90.49 Acquired absence of other specified parts of digestive tract
CPT/HCPCS: 36415; 71010; 80048; 80061; 82550; 82553; 83735; 84443; 84484; 85025; 87081; 90686; 93005; 93306; J2001; C1725; C1887; C9606; J0282; J0583; J1644; J2250; J2270; J3010; Q9967